=== PATIENT | male | born 1935 | race Caucasian/White ===

== ENCOUNTER 2016-12-21 01:00 | Day surgery (SDC) | payer MEDICARE ==
[~2016-12-21 01:00] MED LIST: CARV3.12 PO; CLOP75TA3 PO; HYDR25TA4 PO; POTA10TA12 PO; ROSU5TAB9 PO; UBID200C2 PO
[2016-12-21] MEDS ORDERED: 0.9% Sodium Chloride 1,000 ML IV ONE (06:00)
[2016-12-21 06:34] VITALS: BP 168/94; PULSE 78; RESP 15; O2SAT 94
[2016-12-21 06:40] LABS: BASOPHILS % (AUTO) 0.7 % (0-3); EOSINOPHILS % (AUTO) 3.7 % (0-5); MONOCYTES % (AUTO) 14.2 % (4-12); Mean Corpuscular Hemoglobin 31.4 pg (27.0-35.0); Mean Corpuscular Volume 91.5 fL (81-100); NEUTROPHILS % (AUTO) 57.8 % (40-74); Platelet Count 277 bil/L (150-400)
[2016-12-21] MEDS ORDERED: CARV6.252 PO (06:48)
[2016-12-21 06:50] VITALS: BP 155/93
--- NOTE | 2016-12-21 07:07 | NUR ---
0600 admit note: Patient ambulates into department. His questions are answered, IV's X 2 started and labs are drawn. He is prepped for procedure.
[2016-12-21] MEDS ORDERED: Heparin 10,000 Unit/1,000 mL NS Premix IV ONE (07:37)
[2016-12-21] MEDS ORDERED: Heparin 1,000 Units/500 mL NS Premix IV ONE (07:37)
[2016-12-21] MEDS ORDERED: Nitroglycerin 50,000 mcg/250 mL D5W Premix IV ONE (07:37)
[2016-12-21] MEDS ORDERED: NITR0.3T6 SL (08:46)
[2016-12-21] MEDS ORDERED: AMLO-39 PO (08:46)
--- NOTE | 2016-12-21 08:56 | NUR ---
0900 DISCHARGE: Procedure cancelled. Mamie Maldonado Reviewed DC instructions with patient. Ambulates out of department to return to [facility] then home.
== END 2016-12-21 23:59 | disposition home or self-care (01) ==
LOC: SOUO 01:00
PROVIDERS: ATTEND Internal Medicine Cardiovascular Disease
DX: I25.10 Atherosclerotic heart disease of native coronary artery without angina pectoris (principal); Z53.9 Procedure and treatment not carried out, unspecified reason; Z95.1 Presence of aortocoronary bypass graft; I25.2 Old myocardial infarction
CPT/HCPCS: 36415; 80048; 85025; 93005; J7030